=== PATIENT | female | born 1960 | race Caucasian/White ===

== ENCOUNTER 2017-01-12 07:22 | Day surgery (SDC) | payer BC ==
[2017-01-12] MEDS ORDERED: ZANTAC150 M1 PO (07:36)
[2017-01-12] MEDS ORDERED: TYLENOL325 M2 PO (07:37)
[2017-01-12] MEDS ORDERED: IBUPROFEN200 M3 PO (07:37)
[2017-01-12 10:25] LABS: BASO % 0.3 % (0-2); HCT-HEMATOCRIT 36.4 % (34.0-49.0); IMMATURE GRANULOCYTES ABSOLUTE 0.01 tho/cmm (0-0.03); IMMATURE GRANULOCYTES PERCENT 0.3 % (0-0.3); LYMPH % 17.5 % (20-45); LYMPH ABSOLUTE COUNT 0.7 tho/cmm (0.8-4.5); MCH (MEAN CORPUSCULAR HGB) 28.6 pg (28.0-32.0); MCV (MEAN CELL VOLUME) 86.7 fl (82.0-96.0); MEAN PLATELET VOLUME 9.1 cmc (9.4-12.4); MONO % 10.4 % (0-12); MONOCYTE ABSOLUTE COUNT 0.4 tho/cmm (0.0-1.2); NEUTROPHIL ABSOLUTE COUNT 2.8 tho/cmm (1.6-8.0); NEUTROPHIL-AUTOMATED 2.8 tho/cmm (1.6-8.0); NEUTROPHILS % 70.5 % (40-80); PLATELET COUNT 248 tho/cmm (150-450); RED CELL DISTRIBUTION WIDTH 12.4 % (12.4-16.4)
[2017-01-12 10:41] LABS: ALB/GLOB RATIO 0.8 (0.8-2.0); ALBUMIN 3.4 g/dl (3.5-5.0); ALKALINE PHOSPHATASE 120 U/L (33-138); ALT/SGPT 30 U/L (12-78); ANION GAP 11 mmol/L (0-20); AST/SGOT 22 U/L (10-40); BLOOD UREA NITROGEN 17 mg/dl (6-24); CALCIUM 8.9 mg/dl (8.5-10.5); CARBON DIOXIDE-VENOUS 28 mmol/L (22-32); CHLORIDE 105 mmol/l (96-110); CREATININE 0.64 mg/dl (0.50-1.10); GLUCOSE 95 mg/dL (70-110); SODIUM 140 mmol/L (135-145); eGFR VALUE FOR BLACK >90 mL/Min
[2017-01-12 10:51] LABS: BILIRUBIN,TOTAL 0.3 mg/dl (0-1.5)
[2017-01-12 11:08] LABS: PROTHROMBIN TIME 11.9 SECONDS (9.0-13.6)
[2017-01-13 05:05] LABS: HCT-HEMATOCRIT 34.6 % (34.0-49.0); HGB-HEMOGLOBIN 11.5 gm/dl (12.0-15.5); IMMATURE GRANULOCYTES ABSOLUTE 0.01 tho/cmm (0-0.03); IMMATURE GRANULOCYTES PERCENT 0.2 % (0-0.3); LYMPH % 10.4 % (20-45); LYMPH ABSOLUTE COUNT 0.6 tho/cmm (0.8-4.5); MCH (MEAN CORPUSCULAR HGB) 28.7 pg (28.0-32.0); MCHC MEAN CORPUSCULAR HGB CONC 33.2 % (32.0-36.0); MCV (MEAN CELL VOLUME) 86.3 fl (82.0-96.0); MEAN PLATELET VOLUME 9.2 cmc (9.4-12.4); MONO % 11.4 % (0-12); MONOCYTE ABSOLUTE COUNT 0.7 tho/cmm (0.0-1.2); NEUTROPHIL ABSOLUTE COUNT 4.6 tho/cmm (1.6-8.0); NEUTROPHIL-AUTOMATED 4.6 tho/cmm (1.6-8.0); PLATELET COUNT 251 tho/cmm (150-450); RED BLOOD COUNT 4.01 mil/cmm (4.00-5.20); RED CELL DISTRIBUTION WIDTH 12.1 % (12.4-16.4)
[2017-01-13 05:17] LABS: ALB/GLOB RATIO 0.7 (0.8-2.0); ALBUMIN 2.9 g/dl (3.5-5.0); ANION GAP 11 mmol/L (0-20); BLOOD UREA NITROGEN 12 mg/dl (6-24); CALCIUM 8.9 mg/dl (8.5-10.5); CARBON DIOXIDE-VENOUS 30 mmol/L (22-32); CHLORIDE 104 mmol/l (96-110); CREATININE 0.62 mg/dl (0.50-1.10); GLUCOSE 113 mg/dL (70-110); POTASSIUM 4.7 mmol/L (3.7-5.1); SODIUM 140 mmol/L (135-145); eGFR VALUE FOR BLACK >90 mL/Min
[2017-01-13 05:20] LABS: ALKALINE PHOSPHATASE 428 U/L (33-138); AST/SGOT 577 U/L (10-40); BILIRUBIN,TOTAL 0.8 mg/dl (0-1.5)
[2017-01-13 05:21] LABS: ALT/SGPT 353 U/L (12-78)
[2017-01-13] MEDS ORDERED: NORCO 5-325 TA1 EACH PO (15:14)
== END 2017-01-13 17:23 ==
LOC: 5WE 07:22 → ORW 01-13 09:06 → PACU 01-13 10:53 → 5WE 01-13 14:20
PROVIDERS: Nurse Practitioner; Specialist
PROC: 0FC98ZZ Extirpation of Matter from Common Bile Duct, Via Natural or Artificial Opening Endoscopic (ICD-10-PCS; principal; 2017-01-12)
PROC: 0FT44ZZ Resection of Gallbladder, Percutaneous Endoscopic Approach (ICD-10-PCS; 2017-01-13)
DX: K80.64 Calculus of gallbladder and bile duct with chronic cholecystitis without obstruction (principal); M19.90 Unspecified osteoarthritis, unspecified site; J30.2 Other seasonal allergic rhinitis; Z98.890 Other specified postprocedural states
CPT/HCPCS: C1769; J0690; J1170; J1885; J1956; J2270; J2405; J3010; J7030; Q9966